=== PATIENT | female | born 1985 | race Caucasian/White ===

== ENCOUNTER 2017-11-25 05:20 | Emergency (ER) | payer BC ==
[2017-11-25] MEDS ORDERED: Sodium Chloride 0.9% 10 ML Syringe FLUSH PRN (05:46)
[2017-11-25] MEDS ORDERED: Ondansetron 4 MG/2 ML SDV IVPUSH ONE (05:47)
[2017-11-25] MEDS: Sodium Chloride 0.9% 2,000 ML IV SCH ×2 (05:50→07:06)
--- NOTE | 2017-11-25 05:53 | EDM.PDOC ---
ED HPI GENERAL MEDICAL PROBLEM - General Chief Complaint: Gastrointestinal Problem Stated Complaint: VOMITING Time Seen by Provider: 11/25/17 05:35 Source of Information: Reports: Patient History Limitations: Reports: No Limitations - History of Present Illness INITIAL COMMENTS - FREE TEXT/NARRATIVE: Sunita comes to [facility] ED with a 4 day hx of nausea, vomiting, and diarrhea. Indeed , her whole family collectively has been experiencing similar sxs since last weekend. There is some abdominal cramping, but no hemetemesis or hematochezia. Exposure from a gathering 4 days ago is suspected. There is no fever, chills, sweats, rash, or voiding sxs. Abdomen Pain Score (Numeric/FACES): 5 - Related Data Allergies Allergy/AdvReac Type Severity Reaction Status Date / Time No Known Allergies Allergy Verified 11/25/17 05:30 Home Meds: Home Meds Fluticasone Propionate [Flonase] 1 spray NASBOTH BEDTIME 11/25/17 [History] Norgestrel-Ethinyl Estradiol [Elinest-28 Tablet] 1 each PO ASDIRECTED 11/25/17 [ History] Past Medical History - Past Health History Medical/Surgical History: Denies Medical/Surgical History Other HEENT History: USES FLONASE NASAL SPRAY 1 SQUIRT EACH NARE AT HS Social & Family History - Tobacco Use Smoking Status *Q: Never Smoker Second Hand Smoke Exposure: No - Recreational Drug Use Recreational Drug Use: No ED ROS GENERAL - Review of Systems Review Of Systems: ROS reveals no pertinent complaints other than HPI. ED EXAM, GI/ABD - Physical Exam Exam: See Below Exam Limited By: No Limitations General Appearance: Alert, WD/WN, Mild Distress Eyes: Bilateral: Normal Appearance, EOMI Ears: Normal External Exam Nose: Normal Inspection Throat/Mouth: Normal Inspection, Normal Oropharynx Head: Normocephalic Neck: Normal Inspection, Supple, Non-Tender Respiratory/Chest: Lungs Clear, Normal Breath Sounds, Chest Non-Tender Cardiovascular: Normal Peripheral Pulses, Regular Rate, Rhythm GI/Abdominal Exam: Normal Bowel Sounds, Soft, Non-Tender, No Organomegaly, No Distention, No Mass Back Exam: Normal Inspection Extremities: Normal Inspection Neurological: Alert, Oriented, CN II-XII Intact, Normal Cognition, Normal Gait, No Motor/Sensory Deficits Psychiatric: Normal Affect, Normal Mood Skin Exam: Warm, Dry, Intact Lymphatic: No Adenopathy Course - Vital Signs Text/Narrative:: Following assessment at the [facility] ED, an IV was started in the RUE and 2L of NS and 1L of D5LR was administered over the next 4 hours, in addition to Zofran 8 mg IV and Tylenol 1000 mg po. Screening labs: baseline and satisfactory. A viral gastroenteritis is suspected. Patient was clinically iimproved at time of discharge. Last Recorded V/S: Last Vital Signs Temp 36.9 C 11/25/17 05:25 Pulse 126 H 11/25/17 05:25 Resp 18 11/25/17 06:55 BP 126/75 11/25/17 06:55 Pulse Ox 95 11/25/17 06:55 - Orders/Labs/Meds Orders: Active Orders 24 hr Category Date Time Status URINALYSIS W/MICROSCOPIC [UA W/MICROSCOPIC] [URIN] Stat Lab 11/25/17 08:25 Ordered Dextrose 5%-Lactated Ringers 1,000 ml Med 11/25/17 08:30 Active IV ASDIRECTED Sodium Chloride 0.9% [Normal Saline] 2,000 ml Med 11/25/17 06:00 Active IV ASDIRECTED Sodium Chloride 0.9% [Saline Flush] Med 11/25/17 05:46 Active 10 ml FLUSH ASDIRECTED PRN Peripheral IV Insertion Adult [OM.PC] Routine Oth 11/25/17 05:46 Ordered Medication Orders Sodium Chloride (Normal Saline) 2,000 mls @ 999 mls/hr IV ASDIRECTED TOMMY Last Admin: 11/25/17 07:06 Dose: 999 mls/hr Infusion: 11/25/17 07:05 Dose: 999 mls/hr Admin: 11/25/17 05:50 Dose: 999 mls/hr Dextrose/Lactated Ringer's (Dextrose 5%-Lactated Ringers) 1,000 mls @ 500 mls/ hr IV ASDIRECTED TOMMY Last Admin: 11/25/17 08:25 Dose: 500 mls/hr Sodium Chloride (Saline Flush) 10 ml FLUSH ASDIRECTED PRN PRN Reason: Keep Vein Open Labs: Laboratory Tests 11/25/17 11/25/17 11/25/17 Range/Units 05:50 05:50 08:25 WBC 11.8 (4.5-12.0) X10-3/uL RBC 5.23 H (3.23-5.20) x10(6)uL Hgb 15.4 (11.5-15.5) g/dL Hct 45.3 (30.0-51.3) % MCV 86.5 (80-96) fL MCH 29.5 (27.7-33.6) pg MCHC 34.1 (32.2-35.4) g/dL RDW 11.3 L (11.5-15.5) % Plt Count 241 (125-369) X10(3)uL MPV 9.3 (7.4-10.4) fL Add Manual Diff Yes Neutrophils % (Manual) 93 H (46-82) % Band Neutrophils % 1 (0-6) % Lymphocytes % (Manual) 2 L (13-37) % Monocytes % (Manual) 4 (4-12) % Sodium 135 (135-145) mmol/L Potassium 4.0 (3.5-5.3) mmol/L Chloride 102 (100-110) mmol/L Carbon Dioxide 19 L (21-32) mmol/L BUN 22 H (7-18) mg/dL Creatinine 0.9 (0.55-1.02) mg/dL Est Cr Clr Drug Dosing 95.52 mL/min Estimated GFR (MDRD) > 60 (>60) BUN/Creatinine Ratio 24.4 H (9-20) Glucose 127 H (80-116) mg/dL Calcium 8.8 (8.6-10.2) mg/dL Urine Color Yellow (YELLOW) Urine Appearance Clear (CLEAR) Urine pH 7.0 H (5.0-6.5) Ur Specific [place] 1.010 (1.010-1.025) Urine Protein Negative (NEGATIVE) mg/dL Urine Glucose (UA) Normal (NEGATIVE) mg/dL Urine Ketones 15 H (NEGATIVE) mg/dL Urine Occult Blood Negative (NEGATIVE) Urine Nitrite Negative (NEGATIVE) Urine Bilirubin Negative (NEGATIVE) Urine Urobilinogen Normal (NEGATIVE) mg/dL Ur Leukocyte Esterase Negative (NEGATIVE) Urine WBC 0-5 (0) Ur Squamous Epith Cells Few H (NS,R,O) Urine Bacteria Few H (NS) Meds: Medications Generic Name Dose Route Start Last Admin Trade Name Freq PRN Reason Stop Dose Admin Sodium Chloride 2,000 mls @ 999 mls/hr 11/25/17 06:00 11/25/17 07:06 Normal Saline IV 999 mls/hr ASDIRECTED TOMMY Administration Dextrose/Lactated Ringer's 1,000 mls @ 500 mls/hr 11/25/17 08:30 11/25/17 08: 25 Dextrose 5%-Lactated Ringers IV 500 mls/hr ASDIRECTED TOMMY Administration Sodium Chloride 10 ml 11/25/17 05:46 Saline Flush FLUSH ASDIRECTED PRN Keep Vein Open Discontinued Medications Generic Name Dose Route Start Last Admin Trade Name Freq PRN Reason Stop Dose Admin Acetaminophen 1,000 mg 11/25/17 08:21 11/25/17 08:26 Tylenol Extra Strength PO 11/25/17 08:22 1,000 mg ONETIME ONE Administration Promethazine HCl 50 mg/ Sodium 52 mls @ 200 mls/hr 11/25/17 06:57 11/25/17 07 :11 Chloride IV 11/25/17 07:12 200 mls/hr ONETIME ONE Administration Ondansetron HCl 8 mg 11/25/17 05:47 11/25/17 05:55 Zofran IVPUSH 11/25/17 05:48 8 mg ONETIME ONE Administration Departure - Departure Time of Disposition: 10:21 Disposition: Home, Self-Care 01 Condition: Fair Clinical Impression: Gastroenteritis - Discharge Information Instructions: Viral Gastroenteritis, Adult, Dehydration, Adult, [id number], Nausea and Vomiting, Adult Referrals: PCP,Not In Area [Primary Care Provider] - Forms: ED Department Discharge Additional Instructions: Drink lots of fluids. Rest. May take tylenol or ibuprofen for pain and discomfort. Follow up with primary care provider as needed. - Problem List & Annotations (1) Gastroenteritis SNOMED Code(s): 78216162 Code(s): K52.9 - NONINFECTIVE GASTROENTERITIS AND COLITIS, UNSPECIFIED Status: Acute Current Visit: Yes Annotation/Comment:: I suggested sxs cares , hydration, Tylenol for headaches, and rest. - Problem List Review Problem List Initiated/Reviewed/Updated: Yes - My Orders Last 24 Hours: My Active Orders 11/25/17 05:46 Sodium Chloride 0.9% [Saline Flush] 10 ml FLUSH ASDIRECTED PRN Peripheral IV Insertion Adult [OM.PC] Routine 11/25/17 06:00 Sodium Chloride 0.9% [Normal Saline] 2,000 ml IV ASDIRECTED 11/25/17 08:25 URINALYSIS W/MICROSCOPIC [UA W/MICROSCOPIC] [URIN] Stat 11/25/17 08:30 Dextrose 5%-Lactated Ringers 1,000 ml IV ASDIRECTED - Assessment/Plan Last 24 Hours: My Active Orders 11/25/17 05:46 Sodium Chloride 0.9% [Saline Flush] 10 ml FLUSH ASDIRECTED PRN Peripheral IV Insertion Adult [OM.PC] Routine 11/25/17 06:00 Sodium Chloride 0.9% [Normal Saline] 2,000 ml IV ASDIRECTED 11/25/17 08:25 URINALYSIS W/MICROSCOPIC [UA W/MICROSCOPIC] [URIN] Stat 11/25/17 08:30 Dextrose 5%-Lactated Ringers 1,000 ml IV ASDIRECTED Plan: Follow up with PCP if needed.
[2017-11-25] MEDS ORDERED: Promethazine 50 MG in Sodium Chloride 0.9% 50 ML IV ONE (06:57)
[2017-11-25] MEDS ORDERED: Acetaminophen 500 MG Tab PO ONE (08:21)
[2017-11-25] MEDS ORDERED: Dextrose 5%-Lactated Ringers 1,000 ML IV SCH (08:30)
[2017-11-25 12:25] VITALS: BP 90/55
== END 2017-11-25 10:45 | disposition home or self-care (01) ==
LOC: FB.ED 05:20
DX: K52.9 Noninfective gastroenteritis and colitis, unspecified (principal)
CPT/HCPCS: 36415; 80048; 81001; 85025; 96361; 96365; 96375; 99283; A9270-GY; J2405; J2550; J7040; J7042; J7050

== ENCOUNTER 2021-10-08 21:53 | Emergency (ER) | payer BC ==
[2021-10-08] MEDS ORDERED: Ondansetron 4 MG Tab.DIS PO ONE ×2 (21:54→22:07)
[2021-10-08 22:05] VITALS: BP 155/98; PULSE 116
[2021-10-08] MEDS ORDERED: Lactated Ringers 1,000 ML IV ONE (22:15)
== END 2021-10-08 23:30 | disposition home or self-care (01) ==
LOC: FB.ED 21:53
DX: R11.2 Nausea with vomiting, unspecified (principal)
CPT/HCPCS: 36415; 80048; 85027; 99284; J7120; Q0162